=== PATIENT | female | born 1945 | race Caucasian/White ===

== ENCOUNTER 2019-11-08 13:41 | Emergency (ER) | payer MEDICARE, OTHER ==
[~2019-11-08] VITALS: Ht 167 cm; Wt 86.0 kg
[2019-11-08 14:00] VITALS: BP 144/70
--- NOTE | 2019-11-08 14:05 | NUR ---
TO CT PER CART
[2019-11-08 14:09] LABS: BASOPHILS % (AUTO) 0 % (0-10); EOSINOPHILS # (AUTO) 0.3 10^3/uL (0.0-0.3); EOSINOPHILS % (AUTO) 4 % (0-10); HEMATOCRIT 40 % (35-52); HEMOGLOBIN 13.3 G/DL (11.5-16.0); LYMPHOCYTES % (AUTO) 15 % (12-44); MEAN CORPUSCULAR HEMOGLOBIN 29 PG (25-34); MEAN CORPUSCULAR HGB CONC 33 G/DL (32-36); MEAN CORPUSCULAR VOLUME 88 FL (80-99); MEAN PLATELET VOLUME 10.5 FL (7.4-10.4); MONOCYTES # (AUTO) 0.4 X 10^3 (0.0-1.0); MONOCYTES % (AUTO) 6 % (0-12); NEUTROPHILS # (AUTO) 5.1 X 10^3 (1.8-7.8); NEUTROPHILS % (AUTO) 75 % (42-75); PLATELET COUNT 251 10^3/uL (130-400); RED CELL DISTRIBUTION WIDTH 13.2 % (10.0-14.5); WHITE BLOOD COUNT 6.9 10^3/uL (4.3-11.0)
--- NOTE | 2019-11-08 14:13 | ED Neurological Problem ---
General Chief Complaint: General Problems/Pain Stated Complaint: LOW BP 104/54 Nursing Triage Note: THE PT IS AMBULATORY TO THE ROOM WITHOUT DIFFICULTY. NO DISTRESS IS SEEN ON ARRIVAL. LOC IS NORMAL FOR THE PT. YHE PT DENIES ANY PN ON ARRIVAL. THE PT IS VERY CONCERNED ABOUT HER BP TODAY. BP ON ARRIVAL IS 160/80. FAMILY IS IN THE ROOM WITH THE PT ON ARRIVAL. THE PT REPORT NO RECENT INJURY. Nursing Sepsis Screen: No Definite Risk Source: patient Exam Limitations: no limitations History of Present Illness Date Seen by Provider: Nov 08, 2019 Time Seen by Provider: 13:45 Initial Comments Patient presents to ER by private conveyance with her and chief complaint that about noon, 2 hours prior to arrival she began to experience feeling of near syncope, weakness inability to get up off of the toilet as well as tingling around her tongue and mouth. She denies a history of anxiety. She says this is happened 3 times in the past 3 weeks. The first time her blood pressure went very high so she called Dr. Garcia, cardiology and he prescribed her some amlodipine in addition to her metoprolol and lisinopril and has a follow-up appointment with her the following week. She says the second time it happened about a week ago her blood pressure went very low. It lasted for about an hour and went away. She did not fall any time and has no recent history of trauma. No history of stroke or heart attack. She is not on blood thinners. She has not had any recent surgery or central lines. Today the patient said it happened and she was unable to stand up even with her 's help so they checked her blood pressure was very low 90/40. She is not diabetic. No history of seizures. She takes a statin, blood pressure medicines, beta mal for history of tachycardia but denies a history of atrial fibrillation. She follows with Dr. chow for primary care. Allergies and Home Medications Allergies Coded Allergies: No Known Drug Allergies (Unverified , 11/08/19) Patient Home Medication List Home Medication List Reviewed: Yes Review of Systems Review of Systems Constitutional: No chills, No diaphoresis Eyes: Denies Blindness, Denies Blurred Vision, Denies Drainage, Denies Pain, Denies Photophobia Ears, Nose, Mouth, Throat: denies ear pain, denies ear discharge, denies nose discharge Respiratory: No cough, No phlegm, No short of breath Cardiovascular: No chest pain, No edema, No Hx of Intervention, No palpitations; syncope (Near syncope); No vascular heart diseas Gastrointestinal: No abdominal pain, No constipation, No diarrhea, No nausea Genitourinary: No discharge, No dysuria, No frequency Musculoskeletal: No back pain, No joint pain Skin: No pruritus, No rash Psychiatric/Neurological: Denies Anxiety, Denies Depressed All Other Systems Reviewed Negative Unless Noted: Yes Past Kpsuomc-Mzxdif-Iuxfax Hx Patient Social History Alcohol Use: Denies Use Recreational Drug Use: No Smoking Status: Never a Smoker Recent Foreign Travel: No Contact w/Someone Who Travel: No Recent Infectious Disease Expo: No Recent Hopitalizations: No Physical Abuse: No Sexual Abuse: No Mistreated: No Fear: No Seasonal Allergies Seasonal Allergies: No Past Medical History Surgeries: No Respiratory: No Cardiac: Yes Neurological: No Genitourinary: No Musculoskeletal: No Endocrine: No HEENT: No Cancer: No Psychosocial: No Integumentary: No Physical Exam Vital Signs Vital Signs - First Documented 11/08/19 11/08/19 13:51 14:17 Temp 36.3 Pulse 80 Resp 16 B/P (MAP) 160/80 (106) Pulse Ox 97 Capillary Refill : Less Than 3 Seconds Height, Weight, BMI Height: '" Weight: lbs. oz. kg; 30.00 BMI Method: General Appearance: WD/WN, no apparent distress HEENT: PERRL/EOMI, normal ENT inspection, TMs normal, pharynx normal Neck: full range of motion, supple, normal inspection Respiratory: lungs clear, normal breath sounds, no respiratory distress, no accessory muscle use Cardiovascular: normal peripheral pulses, regular rate, rhythm Peripheral Pulses: 2+ Radial Pulses (R), 2+ Radial Pulses (L) Gastrointestinal: normal bowel sounds, non tender, soft Neurologic/Psychiatric: apartment locator II-XII nml as tested, no motor/sensory deficits, alert, normal mood/affect, oriented x 3 Crainal Nerves: normal hearing, normal speech, PERRL Coordination/Gait: normal finger to nose, normal gait Motor/Sensory: no motor deficit, no sensory deficit, no pronator drift Skin: normal color, warm/dry Stroke Onset of Symptoms Date of Onset of Symptoms: Nov 08, 2019 Time of Symptom Onset: 12:00 Onset of Symptoms: Yes Symptoms onset unknown: No NIH Stroke Scale Assessment Select: Initial Level of Consciousness: 0=Alert (0), Level of Consciousness- Questions: 0=Answers both month/age (0), LOC Commands: 0=Performs both tasks (0), Gaze: Normal (0), Visual Sommer: 0=No visual loss (0), Facial Movement (Facial Paresis): 0=Normal symmetrical mnt (0), Motor Function-Arms Right: 0=No drift (0), Motor Function-Arms Left: 0=No drift (0), Motor Function-Legs Right: 0=No drift (0), Motor Function-Legs Left: 0=No drift (0), Limb Ataxia: 0=Absent (0), Sensory: 0=Normal:no loss (0), Best Language: 0=No aphasia (0), Dysarthria: 0=Normal (0), Extinction & Inattention: 0=No abnormality (0), Total: 0 Stroke Thrombolytic Exclusion Age 18 or Over: Yes Acute intenal hemorrhage: No History of CVA: No Uncontrolled Coagulation Defec: No Intracranial Hemorrhage: No Severe Hypertension: No GI or Bleed: No Subarachnoid Hemorrhage: No Intracranial Neoplasm/Aneurysm: No Oral Anticoagulants: No Surgery or Trauma: No Puncture of Non-Compressible V: No Recent CPR: No Diabetic Hemorrhagic Retinopat: No Organ Biopsy: No Recent Obstetric Delivery: No Glucose: No (112) Significant Hepatic Dysfunctio: No NIH Stoke Scale >22: No Bacterial Endocarditis: No Pericarditis: No Improving Symptoms: Yes Platelets: No TPA Contraindication: No IV - TPa Received IV - TPa Procedure Performed?: No (NIH score of 0 indicates insufficient benefits compared to risks.) Progress/Results/Core Measures Results/Orders Lab Results Laboratory Tests Test 11/08/19 13:52 11/08/19 14:06 11/08/19 14:20 11/08/19 15:49 Range/Units White Blood Count 6.9 4.3-11.0 10^3/uL Red Blood Count 4.59 4.35-5.85 10^6/uL Hemoglobin 13.3 11.5-16.0 G/DL Hematocrit 40 35-52 % Mean Corpuscular Volume 88 80-99 FL Mean Corpuscular Hemoglobin 29 25-34 PG Mean Corpuscular Hemoglobin Concent 33 32-36 G/DL Red Cell Distribution Width 13.2 10.0-14.5 % Platelet Count 251 130-400 10^3/uL Mean Platelet Volume 10.5 H 7.4-10.4 FL Neutrophils (%) (Auto) 75 42-75 % Lymphocytes (%) (Auto) 15 12-44 % Monocytes (%) (Auto) 6 0-12 % Eosinophils (%) (Auto) 4 0-10 % Basophils (%) (Auto) 0 0-10 % Neutrophils # (Auto) 5.1 1.8-7.8 X 10^3 Lymphocytes # (Auto) 1.0 1.0-4.0 X 10^3 Monocytes # (Auto) 0.4 0.0-1.0 X 10^3 Eosinophils # (Auto) 0.3 0.0-0.3 10^3/uL Basophils # (Auto) 0.0 0.0-0.1 10^3/uL Erythrocyte Sedimentation Rate 6 0-30 MM/HR Prothrombin Time 12.5 12.2-14.7 SEC INR Comment 0.9 0.8-1.4 Activated Partial Thromboplast Time 20 L 24-35 SEC D-Dimer 1.15 H 0.00-0.49 UG/ML Sodium Level 141 135-145 MMOL/L Potassium Level 4.0 3.6-5.0 MMOL/L Chloride Level 109 H 98-107 MMOL/L Carbon Dioxide Level 19 L 21-32 MMOL/L Anion Gap 13 5-14 MMOL/L Blood Urea Nitrogen 19 H 7-18 MG/DL Creatinine 0.88 0.60-1.30 MG/DL Estimat Glomerular Filtration Rate > 60 BUN/Creatinine Ratio 22 Glucose Level 146 H 70-105 MG/DL Calcium Level 9.5 8.5-10.1 MG/DL Corrected Calcium 9.3 8.5-10.1 MG/DL Total Bilirubin 0.3 0.1-1.0 MG/DL Aspartate Amino Transf (AST/SGOT) 21 5-34 U/L Alanine Aminotransferase (ALT/SGPT) 16 0-55 U/L Alkaline Phosphatase 65 40-136 U/L Troponin I < 0.028 < 0.028 <0.028 NG/ML C-Reactive Protein High Sensitivity 0.09 0.00-0.50 MG/DL B-Type Natriuretic Peptide 28.7 <100.0 PG/ML Total Protein 6.9 6.4-8.2 GM/DL Albumin 4.3 3.2-4.5 GM/DL Glucometer 112 H 70-110 MG/DL Urine Color YELLOW Urine Clarity CLEAR Urine pH 5.0 5-9 Urine Specific [place] 1.025 H 1.016-1.022 Urine Protein NEGATIVE NEGATIVE Urine Glucose (UA) NEGATIVE NEGATIVE Urine Ketones NEGATIVE NEGATIVE Urine Nitrite NEGATIVE NEGATIVE Urine Bilirubin NEGATIVE NEGATIVE Urine Urobilinogen 0.2 < = 1.0 MG/DL Urine Leukocyte Esterase NEGATIVE NEGATIVE Urine RBC (Auto) NEGATIVE NEGATIVE Urine RBC NONE /HPF Urine WBC NONE /HPF Urine Squamous Epithelial Cells 2-5 /HPF Urine Crystals NONE /LPF Urine Bacteria NEGATIVE /HPF Urine Casts PRESENT /LPF Urine Hyaline Casts 0-2 H /LPF Urine Mucus NEGATIVE /LPF Urine Culture Indicated NO My Orders Orders - ADILSON,MCKENZIE J Orthostatic Vital Signs (Adult (11/08/19 13:58) Cbc With Automated Diff (11/08/19 13:58) Comprehensive Metabolic Panel (11/08/19 13:58) Hs C Reactive Protein (11/08/19 13:58) Erythrocyte Sedimentation Rate (11/08/19 13:58) Ua Culture If Indicated (11/08/19 13:58) Continuous Ekg Monitoring (11/08/19 13:58) Ekg Tracing (11/08/19 13:58) Troponin I (11/08/19 13:58) BNP (11/08/19 13:58) Ct Head Wo-R/O Stroke (11/08/19 13:58) Chest 1 View, Ap/Pa Only (11/08/19 13:58) Protime With Inr (11/08/19 13:58) Partial Thromboplastin Time (11/08/19 13:58) Fibrin Degradation Products (11/08/19 13:58) Nothing By Mouth (11/08/19 Dinner) Accucheck Stat ONCE (11/08/19 13:58) Ed Iv/Invasive Line Start (11/08/19 13:58) Vital Signs Stroke Patient Q15M (11/08/19 13:58) O2 (11/08/19 13:58) Intake & Output 06,14,22 (11/08/19 13:58) Monitor-Rhythm Ecg Trace Only (11/08/19 13:58) Dysphagia Screening Tool (11/08/19 13:58) Lipid Panel (11/09/19 06:00) Ekg Tracing (11/08/19 15:18) Troponin I (11/08/19 15:18) Vital Signs/I&O 11/08/19 11/08/19 11/08/19 11/08/19 13:51 14:00 14:17 14:19 Temp 36.3 Pulse 80 77 80 77 82 Resp 16 16 B/P (MAP) 160/80 (106) 144/70 (94) 180/60 144/70 (94) 139/78 (98) Pulse Ox 97 11/08/19 14:20 Pulse 77 85 B/P (MAP) 144/70 (94) 139/76 (97) Blood Pressure Mean: 106 Progress Progress Note #1: Time: 14:22 Progress Note Hyperventilation/anxiety versus Hypertensive encephalopathy versus TIA versus new onset seizure versus anxiety/conversion? We'll initiate a stroke workup. She has no contra indication to TPA however the benefits do not outweigh the risk as her NIH is 0. Progress Note #2: Time: 15:12 Progress Note The patient's symptoms have completely resolved. Suspect she may have had a vasovagal near syncopal event. We will repeat a delta troponin and EKG at 1545 and if this is normal left her keep her follow-up appointment next week with Dr. Garcia, cardiology. Orthostatics were negative. Progress Note #3: Time: 16:35 Progress Note -2 points: Congolese Syncope Risk Score; Very low risk; 0.7% risk of 30-day serious adverse event No dysrhythmia during her time on the monitor. She is asymptomatic at this time. No deterioration during her ER stay. Initial ECG Impression Date: Nov 08, 2019 Initial ECG Impression Time: 13:54 Initial ECG Rate: 72 Initial ECG Rhythm: Normal Sinus Initial ECG Intervals: Normal Initial ECG Impression: Normal Initial ECG Comparisson: No Previous ECG Available Comment No ST elevation or depression. EKG : EKG Time: 15:17 Rate: 75 Rhythm: Normal Sinus Intervals: Normal ECG Comparisson: Unchanged ECG Impression: Normal Comment Normal sinus rhythm without ST elevation or depression. Diagnostic Imaging Diagonstic Imaging: Xray Plain Films/CT/US/NM/MRI: chest Comments [facility], [facility]. [place], [place] NAME: FRANSISCO HANNA [facility] REC#: [id number] PT STATUS: REG ER : 1945 PHYSICIAN: MCKENZIE DE ANDA MD ADMIT DATE: 11/08/19/ER Draft Date of Exam:11/08/19 CHEST 1 VIEW, AP/PA ONLY EXAMINATION: Chest 1 view HISTORY: Low blood pressure COMPARISON: None available. FINDINGS: The lungs are clear without edema or pneumonia. No pleural effusion or pneumothorax. Heart size is normal. Right hemidiaphragm is mildly elevated. IMPRESSION: 1. Clear lungs. Dictated on workstation # [id number] Dict: 11/08/19 1417 Trans: 11/08/19 1418 CVB [id number] Interpreted by: XIAO VAZQUEZ MD Electronically signed by: Reviewed: Reviewed by Me Diagonstic Imaging: CT (without IV contrast) Plain Films/CT/US/NM/MRI: head Comments NAME: FRANSISCO HANAN [facility] REC#: [id number] PT STATUS: REG ER : 1945 PHYSICIAN: MCKENZIE DE ANDA MD ADMIT DATE: 11/08/19/ER Draft Date of Exam:11/08/19 CT HEAD WO-R/O STROKE PROCEDURE: CT head valle r/o stroke. TECHNIQUE: Multiple contiguous axial images were obtained through the brain without the use of intravenous contrast. Auto Exposure Controls were utilized during the CT exam to meet ALARA standards for radiation dose reduction. INDICATION: Low blood pressure and dizziness. No prior studies are available for comparison. Ventricles and sulci are within normal limits. No sulcal effacement or midline shift is identified. No acute intra-axial or extra-axial hemorrhage is detected. Cisterns are patent. Visualized paranasal sinuses are clear. IMPRESSION: No acute intracranial process is detected. Dictated on workstation # [id number] Dict: 11/08/19 1419 Trans: 11/08/19 1421 CVB [id number] Interpreted by: JAIDA TREJO MD Electronically signed by: Reviewed: Reviewed by Me Consults : Consults Notes 1430: Discussed the case with Dr. Chawla, neurologist on-call for [facility]. We discussed her NIH, her improving symptoms and he says most likely from hyperventilation due to anxiety or possibly hypertension but does not sound anything like a TIA to him. No further imaging workup recommended. Departure Impression Primary Impression: Vasovagal near syncope Disposition: 01 HOME, SELF-CARE Condition: Stable Departure-Patient Inst. Decision time for Depature: 16:36 Referrals: SELFLILIBETH MD (PCP/Family) Primary Care Physician Patient Instructions: Near Fainting (DC), Vasovagal Response Add. Discharge Instructions: Keep your follow-up appointment with the herbarium curator next week. Discuss your medications and how they may relate to your symptoms. If your symptoms return and are persistent or if you fully pass out then you may return to the nearest ER for further evaluation. Return to the nearest ER if you begin to experience chest pain, shortness of breath or other worrisome symptoms. All discharge instructions reviewed with patient and/or family. Voiced understanding. MCKENZIE DE ANDA Nov 08, 2019 14:13
[2019-11-08 14:17] VITALS: BP 180/60
--- NOTE | 2019-11-08 14:18 | Diagnostic Imaging Report ---
EXAMINATION: Chest 1 view HISTORY: Low blood pressure COMPARISON: None available. FINDINGS: The lungs are clear without edema or pneumonia. No pleural effusion or pneumothorax. Heart size is normal. Right hemidiaphragm is mildly elevated. IMPRESSION: 1. Clear lungs. Dictated by: Dictated on workstation # [id number]
--- NOTE | 2019-11-08 14:18 | NUR ---
BACK TO ROOM
[2019-11-08 14:19] VITALS: BP_SYST 139; BP_SYST 144; BP_DIAS 70; BP_DIAS 78
[2019-11-08 14:20] VITALS: BP_SYST 139; BP_SYST 144; BP_DIAS 70; BP_DIAS 76
[2019-11-08 14:21] LABS: FIBRIN DEGRADATION PRODUCTS 1.15 UG/ML (0.00-0.49); INR 0.9 (0.8-1.4); PROTHROMBIN TIME PATIENT 12.5 SEC (12.2-14.7)
--- NOTE | 2019-11-08 14:21 | Diagnostic Imaging Report ---
PROCEDURE: CT head valle r/o stroke. TECHNIQUE: Multiple contiguous axial images were obtained through the brain without the use of intravenous contrast. Auto Exposure Controls were utilized during the CT exam to meet ALARA standards for radiation dose reduction. INDICATION: Low blood pressure and dizziness. No prior studies are available for comparison. Ventricles and sulci are within normal limits. No sulcal effacement or midline shift is identified. No acute intra-axial or extra-axial hemorrhage is detected. Cisterns are patent. Visualized paranasal sinuses are clear. IMPRESSION: No acute intracranial process is detected. Dictated by: Dictated on workstation # [id number]
[2019-11-08 14:26] LABS: ALANINE AMINOTRANSFERASE 16 U/L (0-55); ALBUMIN 4.3 GM/DL (3.2-4.5); ALKALINE PHOSPHATASE 65 U/L (40-136); BILIRUBIN,TOTAL 0.3 MG/DL (0.1-1.0); BUN/CREATININE RATIO 22; CALCIUM 9.5 MG/DL (8.5-10.1); CARBON DIOXIDE 19 MMOL/L (21-32); CHLORIDE 109 MMOL/L (98-107); CREATININE SERUM 0.88 MG/DL (0.60-1.30); GFR ESTIMATED > 60; GLUCOSE 146 MG/DL (70-105); SODIUM 141 MMOL/L (135-145); TOTAL PROTEIN 6.9 GM/DL (6.4-8.2)
[2019-11-08 14:33] LABS: BILIRUBIN,URINE NEGATIVE (NEGATIVE); CLARITY,URINE CLEAR; COLOR,URINE YELLOW; GLUCOSE, URINE (UA) NEGATIVE (NEGATIVE); KETONES,URINE NEGATIVE (NEGATIVE); LEUKOCYTE ESTERASE ,URINE NEGATIVE (NEGATIVE); NITRITE,URINE NEGATIVE (NEGATIVE); PROTEIN,URINE NEGATIVE (NEGATIVE)
[2019-11-08 14:39] LABS: ERYTHROCYTE SEDIMENTATION RATE 6 MM/HR (0-30)
[2019-11-08 14:42] LABS: BACTERIA,URINE NEGATIVE /HPF; HYALINE CASTS, URINE 0-2 /LPF
[2019-11-08 16:51] VITALS: BP 134/75
== END 2019-11-08 16:47 | disposition home or self-care (01) ==
LOC: ER 13:43
DX: R55 Syncope and collapse (principal)
CPT/HCPCS: 36415; 70450; 71045; 80053; 81000; 82962; 83880; 84484; 85025; 85379; 85610; 85652; 85730; 86141; 93005; 93041